=== PATIENT | female | born 1980 | race Caucasian/White ===

== ENCOUNTER 2017-02-19 17:28 | Inpatient (IN) | payer SELFPAY ==
[~2017-02-19] VITALS: Ht 162.6 cm; Wt 86.4 kg
[~2017-02-19 17:28] MED LIST: ABILIFY15 MG PO; CELEXA20 MG PO; XANAX1 MG PO
[2017-02-19 18:30] LABS: BASOPHILS 0.2 % (0-2); EOSINOPHILS 1.4 % (0-7); HEMATOCRIT 45.6 % (36.0-48.0); HEMOGLOBIN 15.1 g/dL (12-16); IMMATURE GRANULOCYTES 0.1 % (0-5); LYMPHOCYTES 29.6 % (15-50); MCH 29.8 pg (26.0-34.0); MCHC 33.1 g/dL (31.0-37.0); MCV 89.9 fL (80.0-100.0); MEAN PLATELET VOLUME 10.3 fL (7.4-10.4); MONOCYTES 7.3 % (2-11); NEUTROPHILS 61.4 % (40-80); RBC 5.07 10x6/uL (4.00-5.40); RDW 13.7 % (11.5-14.5); WBC 8.7 10x3/uL (4.8-10.8)
[2017-02-19 18:50] LABS: PLATELET COUNT 182 10x3/uL (130-400)
[2017-02-19 19:41] LABS: ALBUMIN 3.6 g/dL (3.4-5.0); ALKALINE PHOSPHATASE 54 U/L (46-116); ALT (SGPT) 19 U/L (10-68); BILIRUBIN - TOTAL 0.44 mg/dL (0.2-1.3); CALC OSMOLALITY 273 mosm/kg (275-300); CARBON DIOXIDE 25.4 mmol/L (21.0-32.0); CHLORIDE - SERUM 105 mmol/L (98-107); CREATININE - SERUM 0.8 mg/dL (0.6-1.3); GLUCOSE 81 mg/dL (74-106); POTASSIUM - SERUM 4.6 mmol/L (3.5-5.1); PROTEIN - SERUM 6.6 g/dL (6.4-8.2); SODIUM 138 mmol/L (136-145); UREA NITROGEN 11 mg/dL (7-18); eGFR NON AFRICAN AMERICAN 85 mL/min (90-120)
[2017-02-19 19:45] LABS: ACETAMINOPHEN 19.6 ug/mL (10.0-30.0); MAGNESIUM - SERUM 2.1 mg/dL (1.8-2.4)
[2017-02-19 21:11] LABS: HCG URINE NEGATIVE (NEGATIVE)
[2017-02-19 21:42] LABS: UDS - AMPHET NEGATIVE QUAL (NEGATIVE); UDS - BARB NEGATIVE QUAL (NEGATIVE); UDS - BENZO POSITIVE QUAL (NEGATIVE); UDS - COCAINE NEGATIVE QUAL (NEGATIVE); UDS - METH NEGATIVE QUAL (NEGATIVE); UDS - OPIATE POSITIVE QUAL (NEGATIVE); UDS - PCP NEGATIVE QUAL (NEGATIVE); UDS - THC POSITIVE QUAL (NEGATIVE)
[2017-02-19 22:10] VITALS: BP 124/83
--- NOTE | 2017-02-19 22:10 | NUR ---
PT RECEIVED TO ROOM 2308 FROM ER VIA WHEELCHAIR. PT AAOX4. GAIT STEADY. PT CONNECTED TO STANDARD ICU MONITORS AND ORIENTATED TO ROOM AND CALL LIGHT SYSTEM. INITIAL ADMISSION ASSESSMENT AND HISTORY OBTAINED. PT STATED SHE IS JUST TIRED OF DEALING WITH DEPRESSION. PT STATES SHE HAS HAD NO PRIOR SUICIDE ATTEMPT AND WAS SERIOUSLY "JUST WANTING TO " PT ADMITS TO NONCOMPLIANCE WITH MEDICATIONS SPECIFICALLY HER LATUDA WHICH SHE STATES HAS BEEN EFFECTIVE FOR HER. CIRCUMSTANCES IN WHICH SHE "LOST HER MEDICAID" AND IS FINANCIALLY UNABLE TO AFFORD HER MEDICATIONS CONTRIBUTED SIGNIFICANTLY TO HER NONCOMPLIANCE PER PT. PT ARRIVED WITH NGT TO RIGHT NARE CLAMPED. NGT REMOVED AND PT GIVEN A SANDWICH TRAY PER HER REQUEST. IVF STARTED PER ORDER RECORDED ON DEC
[2017-02-19 22:22] VITALS: BP 124/83; Ht 162.6 cm; Wt 86.4 kg
[2017-02-19] MEDS ORDERED: KLONOPIN1 MG PO (22:23)
[2017-02-19] MEDS ORDERED: ZOLOFT100 MG PO (22:23)
[2017-02-19] MEDS ORDERED: HYDROCODON-ACE1 EAC9 PO (22:24)
[2017-02-19] MEDS ORDERED: LATUDA80 MG PO (22:28)
[2017-02-19 22:30] VITALS: BP 115/60
[2017-02-19 22:45] VITALS: BP 119/83
[2017-02-19 23:00] VITALS: BP 103/47
[2017-02-19 23:30] VITALS: BP 95/58
[2017-02-20] VITALS (13 sets, daily range): BP systolic 94–128; BP diastolic 50–82
--- NOTE | 2017-02-20 | NUR ---
PT SLEEPING VSS CONTINUE TO MONITOR
--- NOTE | 2017-02-20 02:00 | NUR ---
RESP REG AND NONLABORED. MONITORING PT TO MAINTAIN A SAFE ENVIRONMENT
--- NOTE | 2017-02-20 03:00 | NUR ---
SHIFT REASSESSMENT COMPLETED. SEE FLOWSHEET. PT MICKBINDUAdia AT THIS TIME REQUESTED A DRINK, PROVIDED. REQUESTED THIS NURSE TO SLIP HER OUTSIDE FOR A CIGARETTE AND THE USE OF A TELEPHONE BECAUSE PT STATES, "IM READY TO GO HOME, I DIDNT WANT TO BE HERE IN THE FIRST PLACE" ASSURED PT SHE COULD NOT GO OUTSIDE FOR A CIGARETTE AND DUE TO THE NATURE OF HER ADMISSION DX SHE WOULD NOT BE ALLOWED TO HAVE A PHONE DUE TO NATURE OF HER ADMISSION DX AND SHE COULD NOT BE RELEASED FOR SAME REASON WITHOUT SEEING THE PHYSICIAN FIRST. PT THEN REQUESTED SPEAKING WITH THE PSYCHOLOGIST EXPERIMENTAL. MARY PETIT, PSYCHOLOGIST EXPERIMENTAL NOTIFIED OF PT'S DESIRE TO SPEAK WITH HER. PT NOTIFIED PSYCHOLOGIST EXPERIMENTAL WOULD BE HER SOON POSSIBLE
--- NOTE | 2017-02-20 04:00 | NUR ---
HAND DRAWER IN HERE TO SPEAK WITH PT. PT REQUESTED PHONE CALL, PHONE PROVIDED AND THEN REMOVED FROM ROOM
--- NOTE | 2017-02-20 05:00 | NUR ---
PT SLEEPING AT THIS TIME. RESP REG AND NONLABORED
--- NOTE | 2017-02-20 06:35 | NUR ---
PT ALLOWED TO MAKE PHONE CALL TO MOTHER, WAS NOT ABLE TO REACH HER EARLIER. MOTHER GIVEN CODE WORD BY PATIENT AND MOTHER PROVIDED DIRECT NUMBER TO ICU NURSES STATION. PHONE AGAIN REMOVED FROM ROOM
--- NOTE | 2017-02-20 07:00 | NUR ---
PT REPORT REC'D, PT CARE ASSUMED. PT AAOX4 SITTING UP IN BED, NO C/O PAIN. VSS. PT DENIES ANY THOUGHTS OF SUICIDE OR THOUGHTS TO HARM HERSELF. LEFT HAND PIV WITH FLUIDS INFUSING, DRESSING CDI. PT UP TO BEDSIDE COMMODE NEEDED. PT'S ONLY COMPLAINT IS "I NEED A CIGARETTE, CAN I HAVE A NICOTINE PATCH?" INFORMED PT THAT I WOULD TALK TO DR. LUTZ. SHIFT ASSESSMENT COMPLETED, SEE FLOW SHEET. ROOM FREE OF CLUTTER, CALL LIGHT IN REACH, WILL CONTINUE TO MONITOR PT.
--- NOTE | 2017-02-20 07:57 | NUR ---
SPOKE WITH JOHNATHAN HERNANDEZ FROM DR. BRENNAN AND DR. CANADA'S OFFICE TO INFORM OF CONSULT. FAXED FACE SHEET AND ORDER TO OFFICE.
--- NOTE | 2017-02-20 09:30 | NUR ---
PT MAD, STATING " I WANT TO LEAVE HERE, YOU ARE HOLDING ME HOSTAGE." INFORMED PT THAT GIVEN THE SITUATION, SHE IS HERE FOR HER PROTECTION. PT PULLED IV OUT, BAND AID APPLIED. DR. LUTZ INFORMED. WILL CONTINUE TO MONITOR PT.
--- NOTE | 2017-02-20 10:15 | NUR ---
PT REFUSING TO KEEP MONITOR AND BLOOD PRESSURE CUFF ON, INFORMED DR. LUTZ AND DR. CANADA.
--- NOTE | 2017-02-20 11:13 | HP ---
PATIENT: LEONA TITUS MEDICAL RECORD: [id number] ACCOUNT: [id number] LOCATION:[facility] D.2308 : 79 ADMISSION DATE: 02/19/17 HISTORY AND PHYSICAL EXAMINATION HISTORY OF PRESENT ILLNESS: Ms. Titus is a 36-year-old white female who presents to the Emergency Room after she took 10-15 clonazepam and 15 hydrocodone an hour and a half prior to admission. EMS was called and they performed a gastric lavage in the field. In the Emergency Room, she states that she is depressed and just could not take it anymore. She has a previous suicide attempt years ago where she slit her wrist. Her primary care physician is Dr. Ching. She has recently been on Latuda and sertraline. Because of problems with insurance and finances, she cut the doses in a half because she could not afford it and then stopped the Latuda earlier this week. Since then, she has felt worse. She is admitted to the ICU this time. We will obtain a psych consult, anticipate she will need inpatient psych. PAST MEDICAL HISTORY: Significant for anxiety and depression. 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 ALLERGIES: None known. HOME MEDICATIONS: She is supposed to be on Latuda 80 mg once a day, sertraline on 100 once a day and some clonazepam p.r.n. and hydrocodone p.r.n. FAMILY HISTORY: Noncontributory. SOCIAL HISTORY: The patient does smoke. She states that she does not drink. 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 REVIEW OF SYSTEMS: She denies any fever. She denies any headache or visual change. She complains of worsening depression and suicidal ideation. She denies any chest pain or shortness of breath. No edema, no abdominal pain, she actually states she is hungry. VITAL SIGNS: Stable. Her EKG shows a normal EKG. PHYSICAL EXAMINATION: GENERAL: She is a little tearful at this time, but alert and oriented. HEENT: Sclerae nonicteric. NECK: Soft and supple. HEART: Regular. LUNGS: Clear. ABDOMEN: Soft. NEUROLOGIC: Without any gross focal deficits. IMPRESSION: 1. Overdose. 2. Depression. PLAN: Admit to ICU. Psych consult, IV fluids, monitor for complications. See orders for rest of plan. HISTORY AND PHYSICAL [id number] LEONA TITUS TRANSINT:[id number] Voice Confirmation ID: [id number] DOCUMENT ID: [id number] HUBER LUTZ DO at 1113 CC: [id number] DICTATION DATE: 02/19/171944 HEALTH CARE FACILITIES INSPECTOR: 02/19/172205 ADM IN [place] [id number] [place] [address]
--- NOTE | 2017-02-20 12:26 | NUR ---
PT SISTER AT THE BEDSIDE, ALL QUESTIONS ANSWERED, WILL CONTINUE TO MONITOR PT.
--- NOTE | 2017-02-20 15:13 | NUR ---
CM HAS SENT REFERRAL TO [facility]. PSYCH FOR PLACEMENT AT THE [facility]. ICU NUMBER GIVEN TO FACILITY
--- NOTE | 2017-02-20 15:15 | NUR ---
PT FAMILY AT THE BEDSIDE, ALL QUESTIONS ANSWERED, WILL CONTINUE TO MONITOR PT.
--- NOTE | 2017-02-20 16:51 | NUR ---
DALTON SPOKE WITH CLARA AT [facility] AND SHE REQUESTED THE MENTAL HEALTH SCREENER TO COME AND SEE PATIENT. SCREENER (SLIM) WAS CALLED AT 4:45 ([phone]) AND WILL BE HERE WITHIN THE 4 HOURS. PATIENT HAS BEEN ACCEPTED TO [facility] IN [place]. CLARA ([facility]) [phone] FAX [phone] SLIM (SCREENER) [phone]
--- NOTE | 2017-02-20 19:32 | NUR ---
PT REPORT CALLED TO RAFAEL GREWAL RN AT [facility] IN [place], PT TO TRANSFER TO ROOM 222, DR. MONTES IS THE ADMITTING PHYSCIAN.
--- NOTE | 2017-02-20 19:46 | NUR ---
[facility] CALLED FOR TRANSFER
--- NOTE | 2017-02-20 20:10 | NUR ---
[facility] HERE TO TRANSPORT PT. PT AMBULATED TO [facility] AND [facility] SENT WITH AMBULANCE PERSONNEL.
== END 2017-02-20 20:11 | disposition short-term general hospital (02) | DRG 918 ==
LOC: D.ER 17:28 → D.ICU 19:40
PROVIDERS: Emergency Medicine; ADMIT Family Medicine
DX: T42.4X2A Poisoning by benzodiazepines, intentional self-harm, initial encounter (principal); F33.9 Major depressive disorder, recurrent, unspecified; T40.2X2A Poisoning by other opioids, intentional self-harm, initial encounter; F41.9 Anxiety disorder, unspecified; F60.3 Borderline personality disorder; Z72.0 Tobacco use

== ENCOUNTER 2018-03-03 01:25 | Inpatient (IN) | payer SELFPAY ==
[2018-03-03] VITALS (11 sets, daily range): BP systolic 85–120; BP diastolic 41–97; Ht 162.6 cm; Wt 82.0 kg
[~2018-03-03] VITALS: Ht 162.6 cm; Wt 82.0 kg
--- NOTE | ~2018-03-03 | HP ---
PATIENT: LEONA BISHOP MEDICAL RECORD: [id number] ACCOUNT: [id number] LOCATION:[facility] D.2306 : 79 ADMISSION DATE: 03/03/18 HISTORY AND PHYSICAL EXAMINATION HISTORY OF PRESENT ILLNESS: Ms. Bishop is a 37-year-old white female that called the suicide hotline yesterday after ingesting 30 Ambien. This morning, she states that she hates life and she wants to . She has had previous hospitalizations for inpatient psych. She has had a previous suicide attempt several years ago when she cut her wrist multiple times. She is currently on sertraline [address] Ching was her PCP who recently retired. She has seen a new provider and does not sound like she has really jelled with him. She has chronic pain issues and is on hydrocodone, which has recently been weaned down. She is now in the ICU. Medically, she appears stable. Her labs are reviewed and all looked okay. She is alert. She does not want inpatient placement, but she wants help. PAST MEDICAL HISTORY: Per her records from clinic include lumbar radiculopathy, bipolar disorder, depression, migraines. PAST SURGICAL HISTORY: Tubal ligation and upper dental extractions. ALLERGIES: None known. HOME MEDICATIONS: Include clonazepam 1 mg t.i.d., [place] 1 q.12 hours p.r.n., sertraline 100 mg daily. She takes multiple vitamins and vitamin D 70,000 units once a week. FAMILY HISTORY: Noncontributory. SOCIAL HISTORY: She is a daily smoker. She denies substance abuse. She had a recent drug screen on 02/17/2018, which was negative. REVIEW OF SYSTEMS: Significant for suicidal ideation. She denies any abdominal pain, nausea, or vomiting. She complains of chronic low back pain. PHYSICAL EXAMINATION: She appears alert and oriented. She is on the monitor. Her heart rate is regular. Her vital signs are all stable. She is tearful at times and agitated at others. I examined and interviewed her with the presence of our ICU nurse, Ama. IMPRESSION: Severe depression with suicidal attempts. PLAN: Psych consult. Restart sertraline and clonazepam. I am pretty sure, she is going to need inpatient treatment, which she is against. Currently right now she would be a 72-hour hold if she refuses transfer. See orders for rest of plan and await psychiatry's recommendations. TRANSINT:[id number] Voice Confirmation ID: [id number] DOCUMENT ID: [id number] HISTORY AND PHYSICAL [id number] LEONA BISHOP MATTHEW DO at 1750 CC: [id number] DICTATION DATE: 03/03/18 1115 DRUM SANDER SETTER: 03/03/18 1229 ADM IN [place] [address] [place] [address]
--- NOTE | ~2018-03-03 | CN ---
PATIENT NAME:LEONA TITUS MEDICAL RECORD: [id number] : 78 LOCATION:[facility].2306 ADMIT DATE: 03/03/18 ACCOUNT: [id number] CONSULTING PHYSICIAN: CANELO BRENNAN MD REFERRING PHYSICIAN: MATI GUY MD DATE OF CONSULTATION: 03/03/2018 IDENTIFYING DATA: The patient is 37 years old and she is admitted to the hospital on a voluntary basis. CHIEF COMPLAINT: Overdose. HISTORY OF PRESENT ILLNESS: The patient took an overdose of Ambien. She took #30 of 10 mg tablets and she tells me that she did so with the intention to kill herself. She says she regrets that it did not work and that no one is going to stop her from doing this and that she will do it if she has the opportunity. She endorses numerous neurovegetative depressive symptoms. MENTAL STATUS EXAMINATION: The patient is awake; alert; and oriented to person, place, time, and situation. Her mood is flat. Her affect is constricted. Thought processes are circumstantial. Memory, concentration, and abstraction abilities are intact. She denies intent to harm others and psychotic symptoms. She endorses thoughts of self-harm. ASSESSMENT: Major depression, recurrent, without psychotic features, severe. PLAN: The patient should be transitioned to acute inpatient care as soon as it is practicable. She has had several inpatient stays related to depression and suicidal ideations. Her long-term prognosis is guarded. TRANSINT:[id number] Voice Confirmation ID: [id number] DOCUMENT ID: [id number] CANELO BRENNAN MD at 1019 CC: [id number] DICTATION DATE: 03/03/18 1325 THREAD SEPARATOR: 03/03/18 1712 ADM IN [facility] [address] [place] [address]
--- NOTE | ~2018-03-03 | PN ---
PATIENT:LEONA TITUS MEDICAL RECORD: [id number] [facility] D.230 ADMISSION DATE: 03/03/18 PROGRESS NOTE DATE OF SERVICE: 03/06/2018 SUBJECTIVE: The patient's case was discussed with staff. She has no new complaint. OBJECTIVE: The patient has a depressed mood, but denies that she would currently seek to harm herself. ASSESSMENT: Major depression. PLAN: The patient has a very long history of psychiatric disease. She has attempted to kill herself on multiple occasions and has been hospitalized numerous times. It is my recommendation that she have inpatient care at least for a brief period of observation. Her long-term prognosis is guarded. TRANSINT:[id number] Voice Confirmation ID: [id number] DOCUMENT ID: [id number] CANELO BRENNAN MD at 1159 CC: [id number] DICTATION DATE: 03/06/18 1337 SPEECH PATHOLOGY TEACHER: 03/06/18 1415 DIS IN 03/06/18 [place] [address] [place] [address]
[~2018-03-03 01:25] MED LIST changes: +HYDROCODON-ACE1 EAC9 PO; +KLONOPIN1 MG PO; +LATUDA80 MG PO; +ZOLOFT100 MG PO
[2018-03-03 01:45] LABS: APPEARANCE CLEAR (CLEAR); BILIRUBIN NEGATIVE (NEGATIVE); COLOR YELLOW (YELLOW); GLUCOSE NEGATIVE (NEGATIVE); KETONE NEGATIVE (NEGATIVE); NITRITE NEGATIVE (NEGATIVE); PROTEIN NEGATIVE (NEGATIVE); SPECIFIC GRAVITY 1.015 (1.005-1.020); UROBILINOGEN NORMAL (NORMAL)
[2018-03-03 01:54] LABS: UDS - AMPHET NEGATIVE QUAL (NEGATIVE); UDS - BARB NEGATIVE QUAL (NEGATIVE); UDS - BENZO POSITIVE QUAL (NEGATIVE); UDS - COCAINE NEGATIVE QUAL (NEGATIVE); UDS - OPIATE POSITIVE QUAL (NEGATIVE); UDS - PCP NEGATIVE QUAL (NEGATIVE); UDS - THC POSITIVE QUAL (NEGATIVE)
[2018-03-03 01:59] LABS: BASOPHILS 0.2 % (0-2); EOSINOPHILS 2.1 % (0-7); HEMATOCRIT 40.6 % (36.0-48.0); HEMOGLOBIN 13.7 g/dL (12-16); IMMATURE GRANULOCYTES 0.2 % (0-5); LYMPHOCYTES 32.1 % (15-50); MCHC 33.7 g/dL (31.0-37.0); MCV 85.8 fL (80.0-100.0); MEAN PLATELET VOLUME 9.9 fL (7.4-10.4); MONOCYTES 6.9 % (2-11); NEUTROPHILS 58.5 % (40-80); PLATELET COUNT 214 10x3/uL (130-400); RBC 4.73 10x6/uL (4.00-5.40); RDW 13.8 % (11.5-14.5); WBC 8.7 10x3/uL (4.8-10.8)
[2018-03-03 02:07] LABS: HCG SERUM NEGATIVE (NEGATIVE)
[2018-03-03 02:25] LABS: ALBUMIN 3.3 g/dL (3.4-5.0); ALKALINE PHOSPHATASE 52 U/L (46-116); ALT (SGPT) 30 U/L (10-68); BILIRUBIN - TOTAL 0.54 mg/dL (0.2-1.3); CALC OSMOLALITY 277 mosm/kg (275-300); CALCIUM 8.6 mg/dL (8.5-10.1); CHLORIDE - SERUM 106 mmol/L (98-107); CREATININE - SERUM 0.8 mg/dL (0.6-1.3); GLUCOSE 86 mg/dL (74-106); PROTEIN - SERUM 6.9 g/dL (6.4-8.2); SODIUM 140 mmol/L (136-145); UREA NITROGEN 12 mg/dL (7-18); eGFR NON AFRICAN AMERICAN 85 mL/min (90-120)
[2018-03-04 03:00] VITALS: BP 106/64
[2018-03-04 04:57] LABS: BASOPHILS 0.5 % (0-2); EOSINOPHILS 2.3 % (0-7); HEMATOCRIT 42.6 % (36.0-48.0); IMMATURE GRANULOCYTES 0.1 % (0-5); MCH 28.5 pg (26.0-34.0); MCHC 32.9 g/dL (31.0-37.0); MCV 86.6 fL (80.0-100.0); MONOCYTES 6.9 % (2-11); NEUTROPHILS 52.2 % (40-80); PLATELET COUNT 239 10x3/uL (130-400); RBC 4.92 10x6/uL (4.00-5.40); RDW 13.9 % (11.5-14.5); WBC 7.7 10x3/uL (4.8-10.8)
[2018-03-04 05:30] LABS: CALC OSMOLALITY 285 mosm/kg (275-300); CALCIUM 8.9 mg/dL (8.5-10.1); CARBON DIOXIDE 26.3 mmol/L (21.0-32.0); CHLORIDE - SERUM 107 mmol/L (98-107); CREATININE - SERUM 0.8 mg/dL (0.6-1.3); GLUCOSE 91 mg/dL (74-106); POTASSIUM - SERUM 3.7 mmol/L (3.5-5.1); SODIUM 143 mmol/L (136-145); T4 THYROXIN - FREE 1.04 ng/dL (0.76-1.46); THYROID STIMULATING HORMONE 0.48 uIU/mL (0.36-3.74); UREA NITROGEN 15 mg/dL (7-18); eGFR NON AFRICAN AMERICAN 85 mL/min (90-120)
[2018-03-04 10:00] VITALS: BP 106/70
[2018-03-04 17:00] VITALS: BP 112/73
[2018-03-04 19:00] VITALS: BP 115/68
[2018-03-05 03:00] VITALS: BP 114/65
[2018-03-05 08:00] VITALS: BP 121/77
[2018-03-05 11:00] VITALS: BP 125/78
[2018-03-05 15:43] VITALS: BP 118/72
[2018-03-05 20:00] VITALS: BP 109/68
[2018-03-06] VITALS: BP 122/69
[2018-03-06 05:00] VITALS: BP 100/62
[2018-03-06 07:13] VITALS: BP 106/70
[2018-03-06 14:10] VITALS: BP 109/73
[2018-03-06 15:00] VITALS: BP 110/70
[2018-03-06] MEDS ORDERED: VITAMIN D5000 UNIT PO (17:58)
== END 2018-03-06 19:50 | disposition short-term general hospital (02) | DRG 918 ==
LOC: OBSVTIME → D.ER 01:25 → D.ICU 02:46 → D.ER 02:55 → D.ICU 02:55 → D.EDHOLD 02:55 → D.ICU 02:55 → OBSVTIME 02:55 → D.EDHOLD 03:11 → D.ICU 03:11
PROVIDERS: Family Medicine
DX: T42.6X2A Poisoning by other antiepileptic and sedative-hypnotic drugs, intentional self-harm, initial encounter (principal); F33.9 Major depressive disorder, recurrent, unspecified; F17.200 Nicotine dependence, unspecified, uncomplicated